=== PATIENT | female | born 1970 | race Caucasian/White ===

== ENCOUNTER 2016-10-12 22:36 | Emergency (ER) | payer SELFPAY ==
[~2016-10-12] VITALS: Ht 160 cm; Wt 66.5 kg
[~2016-10-12 22:36] MED LIST: ACYC-114 PO; BUSP15TA PO; CAPT12.52 PO; CAPT25TA3 PO; CARV12.543 PO; ENAL5TAB34 PO; FURO-92 PO; MAGN300C PO; PARO20TA55 PO; POTA20TA14 PO; POTA20TA6 PO; SERT100T5 PO; SPIR25TA3 PO; SPIR50TA PO
[2016-10-12] MEDS ORDERED: METOCLOPRAMIDE 5 MG/ML, 2ML ONE (23:11)
[2016-10-12] MEDS ORDERED: METOCLOPRAMIDE 5 MG/ML, 2ML IM ONE (23:30)
[2016-10-12 23:39] LABS: ASPARTATE AMINO TRANSFERASE 23 U/L (15-37); BLOOD UREA NITROGEN 8 mg/dL (7-18)
[2016-10-13] MEDS ORDERED: HYDROmorphone 1 MG/ML, 1ML ONE (00:52)
[2016-10-13] MEDS ORDERED: HYDROmorphone 1 MG/ML, 1ML IM ONE (01:00)
[2016-10-13 01:29] VITALS: BP 107/62
== END 2016-10-13 01:31 | disposition home or self-care (01) ==
LOC: ED 23:41
DX: R10.11 Right upper quadrant pain (principal); R11.0 Nausea
CPT/HCPCS: 36415; 76700; 80053; 81001; 83690; 84703; 85025; 96372; 99285; J1170; J2765